=== PATIENT | female | born 1995 | race Caucasian/White ===

== ENCOUNTER 2018-03-10 19:53 | Emergency (ER) | payer SELFPAY ==
[~2018-03-10] VITALS: Ht 160 cm; Wt 55.3 kg
[2018-03-10 20:11] LABS: APPEARANCE CLOUDY ((CLEAR)); BILIRUBIN NEGATIVE; BLOOD SMALL; COLOR YELLOW ((YELLOW)); GLUCOSE (STRIP) NEGATIVE; KETONES NEGATIVE; LEUKOCYTES NEGATIVE; NITRITE NEGATIVE; PROTEIN (STRIP) NEGATIVE; SPECIFIC GRAVITY 1.013 (1.000-1.030); UROBILINOGEN 0.2 MG/DL (0.2-1.0)
[2018-03-10 20:31] LABS: HEMATOCRIT 37.7 % (36.0-46.0); MCH 32.9 PG (29.0-34.0); MCHC 34.5 G/DL (30.0-36.0); MCV 95.4 FL (83-99); PLATELET COUNT 292 K/uL (156-360); RBC DIS.WIDTH-CV 11.9 % (11.8-14.6); RBC DIS.WIDTH-SD 41.4 % (39-53); RED BLOOD COUNT 3.95 M/uL (3.80-5.20); WHITE BLOOD COUNT 10.2 K/uL (4.1-10.2)
[2018-03-10 20:38] LABS: ALBUMIN 4.4 g/dL (3.2-4.8); CHLORIDE 103 mEq/L (99-109); POTASSIUM 3.7 mEq/L (3.7-5.4); SODIUM 139 mEq/L (136-147)
[2018-03-10 20:40] LABS: GLUCOSE 70 mg/dL (70-99); TOTAL PROTEIN 7.4 g/dL (6.4-8.3)
[2018-03-10 20:42] LABS: TOTAL BILIRUBIN 0.3 mg/dL (0.0-1.0)
[2018-03-10 20:44] LABS: ALKALINE PHOSPHATASE 28 IU/L (3-129); CREATININE 0.8 mg/dL (0.6-1.3); GFR ESTIMATE (CALCULATED) > 59 mL/min/
[2018-03-10 20:45] LABS: UREA NITROGEN (BUN) 14 mg/dL (9-23)
[2018-03-10 20:46] LABS: AST (GOT) 17 IU/L (2-34)
[2018-03-10 20:47] LABS: ALT (GPT) 27 IU/L (3-49)
[2018-03-10 20:48] LABS: RED BLOOD CELLS NONE SEEN /HPF (0-5); WHITE BLOOD CELLS NONE SEEN /HPF (0-5)
[2018-03-10 20:49] LABS: AMORPHOUS PHOSPHATE CRYSTALS 3+; BACTERIA RARE /HPF; EPITHELIAL CELLS 1+ /HPF; MUCUS NONE SEEN /LPF; UCUL ADDED? NO
[2018-03-10 20:56] LABS: QUANTITATIVE HCG 6832.8 MIU/ML
[2018-03-10 23:22] VITALS: BP 105/63
== END 2018-03-10 23:23 | disposition home or self-care (01) ==
LOC: EME 19:53
DX: O20.0 Threatened abortion (principal); Z3A.01 Less than 8 weeks gestation of pregnancy; O99.331 Smoking (tobacco) complicating pregnancy, first trimester; F17.200 Nicotine dependence, unspecified, uncomplicated
CPT/HCPCS: 76801; 80053; 81003; 84702; 85027; 99281; 99284